=== PATIENT | female | born 1975 ===

== ENCOUNTER 2018-08-23 17:34 | Emergency (ER) | payer OTHER ==
[2018-08-23 17:34] VITALS: BMI 29.7
[2018-08-23 17:58] VITALS: BP 136/82; PULSE 74; RESP 18; TEMP 98.3; O2SAT 100
--- NOTE | 2018-08-23 18:31 | C.PDOC ---
History Of Present Illness 43 year old female presents to the ED for evaluation of right ear pain which began around 2 weeks ago. Patient also reports subjective fever. She presents to the ED for evaluation today, because her pain has persisted. She denies pain with ear movement or ear drainage. Time Seen by Provider: 08/23/18 18:10 Chief Complaint (Nursing): ENT Problem History Per: Patient History/Exam Limitations: None Onset/Duration Of Symptoms: Persistent, Other (two weeks ) Current Symptoms Are (Timing): Still Present Quality (Mouth/Throat): denies: Drainage Past Medical History Reviewed: Historical Data, Nursing Documentation, Vital Signs Vital Signs: Last Vital Signs Temp 98.3 F 08/23/18 17:55 Pulse 74 08/23/18 17:55 Resp 18 08/23/18 17:55 BP 136/82 08/23/18 17:55 Pulse Ox 100 08/23/18 17:55 - Medical History PMH: No Chronic Diseases Surgical History: No Surg Hx - [facility] Procedures LOW CERVICAL (02/27/13) Family History: States: Unknown Family Hx - Social History Hx Alcohol Use: No Hx Substance Use: No - Immunization History Hx Tetanus Toxoid Vaccination: No Hx Influenza Vaccination: No Hx Pneumococcal Vaccination: No Review Of Systems Constitutional: Positive for: Fever (subjective ) Eyes: Positive for: Pain (right). Negative for: Other (pain with ear movement, ear drainage ) Physical Exam - Physical Exam Appears: Non-toxic, No Acute Distress Skin: Normal Color, Warm, Dry Head: Atraumatic, Normacephalic, No Tenderness (mastoid ) Eye(s): bilateral: Normal Inspection Ear(s): Left: Normal, Right: TM Erythema (mild), Other (no pain with movement of the pinna ) Oral Mucosa: Moist Neck: Supple Extremity: Normal ROM Neurological/Psych: Oriented x3, Normal Speech, Normal Cognition Gait: Steady ED Course And Treatment O2 Sat by Pulse Oximetry: 100 (on RA) Pulse Ox Interpretation: Normal Medical Decision Making Medical Decision Making: R ear with pain, and TM erythematous. Will treat for otitis media. Disposition - Disposition Disposition: HOME/ ROUTINE Disposition Time: 18:45 Condition: STABLE Additional Instructions: DIVYA PALM, thank you for letting us take care of you today. Your provider was Ludmila Cochran MD and you were treated for EAR PAIN. The emergency medical care you received today was directed at your acute symptoms. If you were prescribed any medication, please fill it and take as directed. It may take several days for your symptoms to resolve. Return to the Emergency Department if your symptoms worsen, do not improve, or if you have any other problems. Please contact your doctor or call one of the physicians/clinics you have been referred to that are listed on the Patient Visit Information form that is included in your discharge packet. Bring any paperwork you were given at discharge with you along with any medications you are taking to your follow up visit. Our treatment cannot replace ongoing medical care by a primary care provider outside of the emergency department. Thank you for allowing the [facility] team to be part of your care today. If you had an X-Ray or CT scan: A Radiologist will review the ED reading if any change in treatment is needed we will contact you. If you had a blood, urine, or wound culture: It will take several days for the results, if any change in treatment is needed we will contact you. If you had an STI test: It will take 48 hours for the results. Please call after 1 week if you have not heard back. Prescriptions: RX: Amoxicillin 500 mg PO BID #14 tablet Instructions: Ear Infections (Otitis Media) (DC) Forms: [employer] (K[place]i) Print Language: SLOVAK - Clinical Impression Clinical Impression: Otitis media - Scribe Statement The provider has reviewed the documentation as recorded by the Scribe (Loraine Hernandez) Provider Attestation: All medical record entries made by the Scribe were at my direction and personally dictated by me. I have reviewed the chart and agree that the record accurately reflects my personal performance of the history, physical exam, medical decision making, and the department course for this patient. I have also personally directed, reviewed, and agree with the discharge instructions and disposition.
== END 2018-08-23 18:31 | disposition home or self-care (01) ==
LOC: C.ER 17:34
DX: H66.91 Otitis media, unspecified, right ear (principal)

== ENCOUNTER 2018-12-24 19:34 | Emergency (ER) | payer SELFPAY ==
[2018-12-24 19:34] VITALS: BMI 29.7
[2018-12-24 19:40] VITALS: RESP 20
--- NOTE | 2018-12-24 20:07 | C.PDOC ---
History Of Present Illness 43-year-old female presents to the ED for evaluation of right ear pain which has been ongoing for one month. Patient states she has been using Debrox ear drops without relief. Patient had not previous sought medical evaluation for her symptoms, and denies fever, chills change in hearing, ear discharge, known trauma to the area, or recent swimming. Time Seen by Provider: 12/24/18 19:52 Chief Complaint (Nursing): ENT Problem History Per: Patient History/Exam Limitations: None Onset/Duration Of Symptoms: Other (one month ) Current Symptoms Are (Timing): Still Present Quality (Ear): Pain W/Touch. denies: Discharge Past Medical History Reviewed: Historical Data, Nursing Documentation, Vital Signs Vital Signs: Last Vital Signs Temp 98.6 F 12/24/18 19:37 Pulse 65 12/24/18 19:37 Resp 20 12/24/18 19:37 BP 129/72 12/24/18 19:37 Pulse Ox 100 12/24/18 19:37 Primary Care Provider: FAMILY PROVIDER,NO - Medical History PMH: No Chronic Diseases Surgical History: No Surg Hx - [facility] Procedures LOW CERVICAL (02/27/13) Family History: States: Unknown Family Hx - Social History Hx Alcohol Use: No Hx Substance Use: No - Immunization History Hx Tetanus Toxoid Vaccination: No Hx Influenza Vaccination: No Hx Pneumococcal Vaccination: No Review Of Systems Constitutional: Negative for: Fever, Chills, Weakness ENT: Positive for: Ear Pain (right). Negative for: Ear Discharge, Nose Discharge, Nose Congestion, Throat Pain Respiratory: Negative for: Cough, Shortness of Breath Skin: Negative for: Rash, Lesions, Jaundice, Bruising Neurological: Negative for: Weakness, Numbness, Dizziness Physical Exam - Physical Exam Appears: Non-toxic, No Acute Distress Skin: Normal Color, Warm, No Rash Head: Atraumatic, Normacephalic Eye(s): bilateral: Normal Inspection (no scleral icterus ), PERRL, EOMI Ear(s): Left: Normal, Right: Other (swelling noted to canal. pain with pulling of the outer ear. TM is unremarkable with no fluid collection or erythema ) Nose: Normal, No Discharge Oral Mucosa: Moist Throat: Normal, No Erythema, No Exudate, Other (airway patent ) Neurological/Psych: Oriented x3, Normal Speech, Normal Cognition ED Course And Treatment O2 Sat by Pulse Oximetry: 100 (on RA ) Pulse Ox Interpretation: Normal Medical Decision Making Medical Decision Making: Based on history and physical exam findings, will treat patient for Otitis externa. On reassessment, patient is resting comfortably, showing no signs of distress and is stable for discharge. Patient is advised to f/u with her PMD within 1-2 days for further evaluation. Disposition Counseled Patient/Family Regarding: Diagnosis, Need For Followup, Rx Given - Disposition Referrals: Jc Wallace MD [Staff Provider] - Disposition: HOME/ ROUTINE Disposition Time: 20:05 Condition: STABLE Prescriptions: Ciprofloxacin/Dexamethasone [Ciprodex Otic] 2 drop AD BID 7 Days #1 bottle Instructions: Outer Ear Infection (DC) Forms: [email or web address] (Filipino), Gen Discharge Inst Filipino Print Language: UKRAINIAN - Clinical Impression Clinical Impression: Otitis externa - PA / [employer]MENT SUPERVISOR / Resident Statement MD/DO has reviewed & agrees with the documentation as recorded. - Scribe Statement The provider has reviewed the documentation as recorded by the Scribe (Loraine Hernandez) All medical record entries made by the Scribe were at my direction and personally dictated by me. I have reviewed the chart and agree that the record accurately reflects my personal performance of the history, physical exam, medical decision making, and the department course for this patient. I have also personally directed, reviewed, and agree with the discharge instructions and disposition.
[2018-12-24 20:23] VITALS: BP 146/92; PULSE 66; TEMP 98.2
[2018-12-24 21:13] VITALS: O2SAT 100
== END 2018-12-24 20:30 | disposition home or self-care (01) ==
LOC: C.ER 19:34
DX: H60.91 Unspecified otitis externa, right ear (principal)